=== PATIENT | female | born 1975 | race Caucasian/White ===

== ENCOUNTER 2017-09-01 01:42 | Emergency (ER) | payer MEDICARE, MEDICAID ==
[~2017-09-01] VITALS: Ht 162.6 cm; Wt 120.0 kg
[~2017-09-01 01:42] MED LIST: DIPH25CA83 PO; DOCU-28 PO; FAMO40TA73 PO; IBUP-1984 PO; LABE50DI PO; ONDA4TAB6 PO; ZIPR20CA2 PO; ZIPR60CA5 PO; ZOL50T PO
[2017-09-01] MEDS ORDERED: ondansetron 4mg rapidly disintigrating tab PO ONE (02:05)
[2017-09-01 02:46] LABS: BASOPHILS % (AUTO) 0.4 % (0-1); EOSINOPHILS # (AUTO) 0.2 X10'3 (0-0.9); EOSINOPHILS % (AUTO) 2.6 % (0-6); HEMATOCRIT 35.6 % (35.0-45.0); HEMOGLOBIN 11.9 g/dl (12.0-16.0); LYMPHOCYTES # (AUTO) 2.1 X10'3 (1.1-4.8); LYMPHOCYTES % (AUTO) 23.7 % (21-51); MEAN CORPUSCULAR HEMOGLOBIN 27.1 PG (27.0-31.0); MEAN CORPUSCULAR HGB CONC 33.5 % (33.0-36.5); MEAN PLATELET VOLUME 7.7 FL (7.4-10.4); MONOCYTES # (AUTO) 0.8 X10'3 (0-0.9); MONOCYTES % (AUTO) 8.8 % (2-12); NEUTROPHILS # (AUTO) 5.6 X10'3 (1.8-7.7); NEUTROPHILS % (AUTO) 64.5 % (42-75); PLATELET COUNT 245 X10'3 (140-440); RED BLOOD COUNT 4.39 X10'6 (4.20-5.60); RED CELL DISTRIBUTION WIDTH 14.8 % (11.5-14.5); WHITE BLOOD COUNT 8.7 X10'3 (4.5-11.0)
[2017-09-01 02:49] LABS: CLARITY,URINE Clear (Clear); COLOR,URINE Yellow (Yellow); GLUCOSE, URINE Negative (Neg); KETONES,URINE Negative (Neg); LEUKOCYTE ESTERASE ,URINE Negative (Neg); NITRITES, URINE Negative (Neg); OCCULT BLOOD,URINE Negative (Neg); PROTEIN,URINE Trace mg/dl (Neg)
[2017-09-01 02:50] LABS: UA COLLECTION TYPE CLN CATCH MIDSTREAM
[2017-09-01 02:59] LABS: BACTERIA,URINE 1+ /HPF (Neg); RBC,URINE NONE SEEN /HPF (0-2); SQUAMOUS EPITHELIAL CELL,UR MANY /LPF (FEW); WBC,URINE 0-4 /HPF (0-4)
[2017-09-01 03:00] LABS: MUCUS STRANDS MODERATE /LPF (Neg)
[2017-09-01 03:01] LABS: ALANINE AMINOTRANSFERASE 21 U/L (12-78); ALBUMIN 3.4 G/DL (3.4-5.0); ALBUMIN/GLOBULIN RATIO 0.9 (1.1-1.5); ALKALINE PHOSPHATASE 86 IU/L (46-116); ANION GAP 9 (8-16); ASPARTATE AMINO TRANSFERASE 15 U/L (10-37); BILIRUBIN,TOTAL 0.5 MG/DL (0.1-1.0); BLOOD UREA NITROGEN 15 MG/DL (7-18); BUN/CREATININE RATIO 20.8 (6.6-38.0); CALCIUM 8.1 MG/DL (8.5-10.1); CHLORIDE 104 MMOL/L (99-107); CREATININE 0.72 MG/DL (0.40-0.90); GLUCOSE 134 MG/DL (70-104); LIPASE 174 U/L (73-393); POTASSIUM 3.5 MMOL/L (3.5-5.1); SODIUM 140 MMOL/L (135-145); TOTAL CARBON DIOXIDE 27.4 MMOL/L (24-32); TOTAL PROTEIN 7.1 G/DL (6.4-8.2); eGFR 89 ML/MIN
[2017-09-01 03:42] LABS: URINE HCG NEGATIVE (NEG)
[2017-09-01] MEDS ORDERED: ONDA4TAB12 PO (03:51)
[2017-09-01 04:17] VITALS: BP 122/74
== END 2017-09-01 04:20 | disposition home or self-care (01) ==
LOC: ER 01:43
DX: R10.30 Lower abdominal pain, unspecified (principal); G89.29 Other chronic pain; I10 Essential (primary) hypertension; G47.00 Insomnia, unspecified; J45.909 Unspecified asthma, uncomplicated; Z98.890 Other specified postprocedural states; Z87.891 Personal history of nicotine dependence; Z88.6 Allergy status to analgesic agent; Z88.5 Allergy status to narcotic agent; Z79.899 Other long term (current) drug therapy
CPT/HCPCS: 36415; 80053; 81001; 81025; 83690; 85025; 99284

== ENCOUNTER 2017-11-05 05:00 | Emergency (ER) | payer MEDICARE, MEDICAID ==
[~2017-11-05] VITALS: Ht 162.6 cm; Wt 125.6 kg
[~2017-11-05 05:00] MED LIST changes: +ONDA4TAB12 PO
[2017-11-05] MEDS ORDERED: ondansetron 4mg rapidly disintigrating tab PO ONE (06:55)
[2017-11-05] MEDS ORDERED: meclizine 12.5mg tablet PO ONE (06:55)
[2017-11-05 07:12] LABS: CLARITY,URINE Clear (Clear); COLOR,URINE Yellow (Yellow); GLUCOSE, URINE Negative (Neg); KETONES,URINE Negative (Neg); LEUKOCYTE ESTERASE ,URINE Negative (Neg); NITRITES, URINE Negative (Neg); OCCULT BLOOD,URINE Negative (Neg); PH,URINE 6.5 (4.8-8.0); PROTEIN,URINE Trace mg/dl (Neg); UROBILINOGEN,URINE 0.2 E.U/dL (0.2-1.0)
[2017-11-05 07:13] LABS: UA COLLECTION TYPE CLN CATCH MIDSTREAM; URINE HCG NEGATIVE (NEG)
[2017-11-05] MEDS ORDERED: MECL-111 PO (07:23)
[2017-11-05 07:39] VITALS: BP 156/93
[2017-11-05 07:48] LABS: RBC,URINE NONE SEEN /HPF (0-2); WBC,URINE 0-4 /HPF (0-4)
[2017-11-05 07:49] LABS: BACTERIA,URINE FEW /HPF (Neg); MUCUS STRANDS FEW /LPF (Neg); SQUAMOUS EPITHELIAL CELL,UR FEW /LPF (FEW)
== END 2017-11-05 07:42 | disposition home or self-care (01) ==
LOC: ER 05:00
DX: R10.84 Generalized abdominal pain (principal); R42 Dizziness and giddiness; I10 Essential (primary) hypertension; J45.909 Unspecified asthma, uncomplicated; Z60.2 Problems related to living alone; Z79.899 Other long term (current) drug therapy
CPT/HCPCS: 81001; 81025; 82948; 99285; J8597

== ENCOUNTER 2017-12-31 09:54 | Emergency (ER) | payer MEDICARE, MEDICAID ==
[~2017-12-31] VITALS: Ht 162.6 cm; Wt 126.6 kg
[~2017-12-31 09:54] MED LIST changes: +MECL-111 PO
[2017-12-31 10:23] LABS: URINE HCG NEGATIVE (NEG)
[2017-12-31 10:28] LABS: CLARITY,URINE SLIGHTLY CLOUDY (Clear); COLOR,URINE YELLOW (Yellow); GLUCOSE, URINE NEGATIVE (Neg); KETONES,URINE NEGATIVE (Neg); LEUKOCYTE ESTERASE ,URINE NEGATIVE (Neg); NITRITES, URINE POSITIVE (Neg); OCCULT BLOOD,URINE LARGE (Neg); PH,URINE 6.5 (4.8-8.0); PROTEIN,URINE >=300 mg/dl (Neg); UROBILINOGEN,URINE 0.2 E.U/dL (0.2-1.0)
[2017-12-31 10:32] LABS: UA COLLECTION TYPE CLN CATCH MIDSTREAM
[2017-12-31 10:36] LABS: RBC,URINE TNTC /HPF (0-2); WBC,URINE 50-100 /HPF (0-4)
[2017-12-31 10:37] LABS: BACTERIA,URINE 2+ /HPF (Neg); MUCUS STRANDS FEW /LPF (Neg)
[2017-12-31 10:38] LABS: SQUAMOUS EPITHELIAL CELL,UR MODERATE /LPF (FEW); WBC CLUMPS,URINE MODERATE /HPF (NEGATIVE)
[2017-12-31] MEDS ORDERED: SULF1TAB49 PO (10:50)
[2017-12-31] MEDS ORDERED: METO100T14 PO (11:07)
[2017-12-31 11:14] VITALS: BP 199/116
== END 2017-12-31 11:16 | disposition home or self-care (01) ==
LOC: ER 09:55
DX: M46.1 Sacroiliitis, not elsewhere classified (principal); N39.0 Urinary tract infection, site not specified; I10 Essential (primary) hypertension; J45.909 Unspecified asthma, uncomplicated; Z60.2 Problems related to living alone; Z88.5 Allergy status to narcotic agent; Z88.8 Allergy status to other drugs, medicaments and biological substances; Z79.899 Other long term (current) drug therapy
CPT/HCPCS: 81001; 81025; 87077; 87088; 87186; 99284

== ENCOUNTER 2018-02-03 10:44 | Emergency (ER) | payer MEDICARE, MEDICAID ==
[~2018-02-03] VITALS: Ht 162.6 cm; Wt 123.0 kg
[~2018-02-03 10:44] MED LIST changes: +METO100T14 PO
[2018-02-03 12:13] LABS: URINE HCG NEGATIVE (NEG)
[2018-02-03 12:17] LABS: CLARITY,URINE CLOUDY (Clear); COLOR,URINE AMBER (Yellow); GLUCOSE, URINE NEGATIVE (Neg); KETONES,URINE NEGATIVE (Neg); LEUKOCYTE ESTERASE ,URINE MODERATE (Neg); NITRITES, URINE POSITIVE (Neg); OCCULT BLOOD,URINE LARGE (Neg); PROTEIN,URINE >=300 mg/dl (Neg); UROBILINOGEN,URINE 0.2 E.U/dL (0.2-1.0)
[2018-02-03 12:27] LABS: UA COLLECTION TYPE CLN CATCH MIDSTREAM
[2018-02-03 12:28] LABS: BACTERIA,URINE 4+ /HPF (Neg); MUCUS STRANDS FEW /LPF (Neg); RBC,URINE TNTC /HPF (0-2); SQUAMOUS EPITHELIAL CELL,UR MODERATE /LPF (FEW); WBC,URINE TNTC /HPF (0-4)
[2018-02-03] MEDS ORDERED: ketorolac trometh inj. 60 MG/2 ML VIAL IM STA (12:29)
[2018-02-03] MEDS ORDERED: IBUP-1984 PO (12:31)
[2018-02-03] MEDS ORDERED: SULF1TAB48 PO (12:49)
[2018-02-03 12:58] VITALS: BP 185/95
== END 2018-02-03 13:08 | disposition home or self-care (01) ==
LOC: ER 10:44
DX: M25.552 Pain in left hip (principal); R11.10 Vomiting, unspecified; I10 Essential (primary) hypertension; J45.909 Unspecified asthma, uncomplicated; Z60.2 Problems related to living alone; Z98.890 Other specified postprocedural states; Z88.5 Allergy status to narcotic agent; Z79.899 Other long term (current) drug therapy
CPT/HCPCS: 81001; 81025; 87077; 87088; 87186; 96372; 99284; J1885

== ENCOUNTER 2018-05-11 20:49 | Emergency (ER) | payer MEDICARE, MEDICAID ==
[~2018-05-11] VITALS: Ht 162.6 cm; Wt 120.0 kg
[2018-05-11 21:00] VITALS: BP 198/117
[2018-05-11] MEDS ORDERED: ondansetron/PF 4mg/2ml inj IV ONE (21:35)
[2018-05-11] MEDS ORDERED: normal saline 1000ml 1,000 ML IV ONE (21:35)
[2018-05-11 21:56] LABS: BASOPHILS # (AUTO) 0.1 X10'3 (0-0.2); BASOPHILS % (AUTO) 0.8 % (0-1); EOSINOPHILS # (AUTO) 0.2 X10'3 (0-0.9); EOSINOPHILS % (AUTO) 1.9 % (0-6); HEMATOCRIT 37.9 % (35.0-45.0); HEMOGLOBIN 12.9 g/dl (12.0-16.0); LYMPHOCYTES # (AUTO) 2.1 X10'3 (1.1-4.8); LYMPHOCYTES % (AUTO) 25.3 % (21-51); MEAN CORPUSCULAR HEMOGLOBIN 28.3 PG (27.0-31.0); MEAN CORPUSCULAR HGB CONC 33.9 % (33.0-36.5); MEAN CORPUSCULAR VOLUME 83.3 FL (78-98); MEAN PLATELET VOLUME 8.3 FL (7.4-10.4); MONOCYTES # (AUTO) 0.7 X10'3 (0-0.9); MONOCYTES % (AUTO) 7.9 % (2-12); NEUTROPHILS # (AUTO) 5.4 X10'3 (1.8-7.7); NEUTROPHILS % (AUTO) 64.1 % (42-75); PLATELET COUNT 232 X10'3 (140-440); RED BLOOD COUNT 4.55 X10'6 (4.20-5.60); RED CELL DISTRIBUTION WIDTH 15.4 % (11.5-14.5); WHITE BLOOD COUNT 8.5 X10'3 (4.5-11.0)
[2018-05-11 22:00] LABS: URINE HCG NEGATIVE (NEG)
[2018-05-11 22:06] LABS: CLARITY,URINE CLEAR (Clear); COLOR,URINE YELLOW (Yellow); GLUCOSE, URINE NEGATIVE (Neg); KETONES,URINE NEGATIVE (Neg); LEUKOCYTE ESTERASE ,URINE NEGATIVE (Neg); NITRITES, URINE NEGATIVE (Neg); OCCULT BLOOD,URINE NEGATIVE (Neg); PROTEIN,URINE NEGATIVE (Neg); UROBILINOGEN,URINE 0.2 E.U/dL (0.2-1.0)
[2018-05-11 22:07] LABS: UA COLLECTION TYPE CLN CATCH MIDSTREAM
[2018-05-11 22:16] LABS: ALANINE AMINOTRANSFERASE 21 U/L (12-78); ALBUMIN 3.5 G/DL (3.4-5.0); ALKALINE PHOSPHATASE 81 IU/L (46-116); ANION GAP 8 (8-16); ASPARTATE AMINO TRANSFERASE 17 U/L (10-37); BILIRUBIN,TOTAL 0.5 MG/DL (0.1-1.0); BLOOD UREA NITROGEN 10 MG/DL (7-18); BUN/CREATININE RATIO 13.5 (6.6-38.0); CHLORIDE 105 MMOL/L (99-107); CREATININE 0.74 MG/DL (0.40-0.90); GLUCOSE 137 MG/DL (70-104); POTASSIUM 4.1 MMOL/L (3.5-5.1); SODIUM 141 MMOL/L (135-145); eGFR 86 ML/MIN
== END 2018-05-11 23:27 | disposition home or self-care (01) ==
LOC: ER 20:50
DX: D25.9 Leiomyoma of uterus, unspecified (principal); N83.202 Unspecified ovarian cyst, left side; K76.0 Fatty (change of) liver, not elsewhere classified; I10 Essential (primary) hypertension; J45.909 Unspecified asthma, uncomplicated; Z98.890 Other specified postprocedural states; Z60.2 Problems related to living alone; Z88.5 Allergy status to narcotic agent; Z79.899 Other long term (current) drug therapy
CPT/HCPCS: 36415; 74176; 80053; 81003; 81025; 85025; 96374; 99285; J2405; J7030

== ENCOUNTER 2019-03-08 14:20 | Emergency (ER) | payer MEDICARE, MEDICAID ==
[~2019-03-08] VITALS: Ht 162.6 cm; Wt 120.5 kg
[2019-03-08] MEDS ORDERED: IBUP-1984 PO (16:22)
[2019-03-08 16:31] LABS: URINE HCG NEGATIVE (NEG)
[2019-03-08 16:33] LABS: CLARITY,URINE SLIGHTLY CLOUDY (Clear); COLOR,URINE YELLOW (Yellow); GLUCOSE, URINE NEGATIVE (Neg); KETONES,URINE TRACE mg/dl (Neg); LEUKOCYTE ESTERASE ,URINE NEGATIVE (Neg); NITRITES, URINE NEGATIVE (Neg); OCCULT BLOOD,URINE SMALL (Neg); PH,URINE 5.5 (4.8-8.0); PROTEIN,URINE TRACE mg/dl (Neg); UROBILINOGEN,URINE 0.2 E.U/dL (0.2-1.0)
[2019-03-08 16:38] LABS: UA COLLECTION TYPE VOIDED
[2019-03-08 16:43] LABS: BACTERIA,URINE FEW /HPF (Neg); MUCUS STRANDS MODERATE /LPF (Neg); RBC,URINE 0-2 /HPF (0-2); SQUAMOUS EPITHELIAL CELL,UR MANY /LPF (FEW); WBC,URINE 0-4 /HPF (0-4)
[2019-03-08 17:29] VITALS: BP 145/90
== END 2019-03-08 17:30 | disposition home or self-care (01) ==
LOC: ER 14:21
DX: G89.29 Other chronic pain (principal); R19.03 Right lower quadrant abdominal swelling, mass and lump; I10 Essential (primary) hypertension; J45.909 Unspecified asthma, uncomplicated; F41.9 Anxiety disorder, unspecified; F32.9 Major depressive disorder, single episode, unspecified; Z98.890 Other specified postprocedural states; Z88.5 Allergy status to narcotic agent; Z79.899 Other long term (current) drug therapy
CPT/HCPCS: 81001; 81025; 99283

== ENCOUNTER 2019-07-28 16:56 | Emergency (ER) | payer MEDICARE, MEDICAID ==
[~2019-07-28] VITALS: Ht 160 cm; Wt 120.0 kg
[~2019-07-28 16:56] MED LIST changes: +SERT-153 PO; -ZOL50T PO
[2019-07-28 17:11] VITALS: BP 187/104
[2019-07-28] MEDS ORDERED: ondansetron 4mg rapidly disintigrating tab PO ONE (19:50)
[2019-07-28 20:05] LABS: URINE HCG NEGATIVE (NEG)
[2019-07-28 20:14] LABS: CLARITY,URINE CLEAR (Clear); COLOR,URINE YELLOW (Yellow); GLUCOSE, URINE NEGATIVE (Neg); KETONES,URINE NEGATIVE (Neg); LEUKOCYTE ESTERASE ,URINE NEGATIVE (Neg); NITRITES, URINE NEGATIVE (Neg); OCCULT BLOOD,URINE NEGATIVE (Neg); PROTEIN,URINE NEGATIVE (Neg); UROBILINOGEN,URINE 0.2 E.U/dL (0.2-1.0)
[2019-07-28 20:21] LABS: UA COLLECTION TYPE CLN CATCH MIDSTREAM
[2019-07-28] MEDS ORDERED: ONDA4TAB6 PO (20:46)
== END 2019-07-28 20:53 | disposition home or self-care (01) ==
LOC: ER 16:56
DX: R11.0 Nausea (principal); R42 Dizziness and giddiness; I10 Essential (primary) hypertension; J45.909 Unspecified asthma, uncomplicated; F41.9 Anxiety disorder, unspecified; F32.9 Major depressive disorder, single episode, unspecified; Z98.890 Other specified postprocedural states; Z60.2 Problems related to living alone; Z88.5 Allergy status to narcotic agent; Z79.899 Other long term (current) drug therapy
CPT/HCPCS: 81003; 81025; 93005; 99284

== ENCOUNTER 2020-05-03 23:01 | Emergency (ER) | payer MEDICARE, MEDICAID ==
[~2020-05-03] VITALS: Ht 162.6 cm; Wt 119.0 kg
[~2020-05-03 23:01] MED LIST changes: -MECL-111 PO; +MECL-159 PO
[2020-05-03 23:03] VITALS: BP 173/83
[2020-05-04] MEDS ORDERED: BENZ-16 PO (00:03)
[2020-05-04] MEDS ORDERED: ALBU8.5H8 INH (00:03)
== END 2020-05-04 00:18 | disposition home or self-care (01) ==
LOC: ER 23:02
DX: R05 Cough (principal); I10 Essential (primary) hypertension; J45.909 Unspecified asthma, uncomplicated; Z20.828 Contact with and (suspected) exposure to other viral communicable diseases; Z88.5 Allergy status to narcotic agent; Z79.899 Other long term (current) drug therapy; F41.9 Anxiety disorder, unspecified; F32.9 Major depressive disorder, single episode, unspecified; Z98.890 Other specified postprocedural states; Z60.2 Problems related to living alone
CPT/HCPCS: 36415; 71045; 87635; 99283; 99284

== ENCOUNTER 2021-05-10 23:34 | Emergency (ER) | payer MEDICARE, MEDICAID ==
[~2021-05-10] VITALS: Ht 162.6 cm; Wt 118.5 kg
[~2021-05-10 23:34] MED LIST changes: +ALBU8.5H17 INH
[2021-05-11 01:13] LABS: UA COLLECTION TYPE CLN CATCH MIDSTREAM
[2021-05-11 01:14] LABS: CLARITY,URINE SLIGHTLY CLOUDY (Clear); COLOR,URINE YELLOW (Yellow); GLUCOSE, URINE NEGATIVE (Neg); KETONES,URINE NEGATIVE (Neg); NITRITES, URINE NEGATIVE (Neg); OCCULT BLOOD,URINE MODERATE (Neg); PROTEIN,URINE 30 mg/dl (Neg)
[2021-05-11 01:15] LABS: LEUKOCYTE ESTERASE ,URINE MODERATE (Neg); UROBILINOGEN,URINE 0.2 E.U/dL (0.2-1.0)
[2021-05-11 01:20] LABS: BACTERIA,URINE 2+ /HPF (Neg); MUCUS STRANDS FEW /LPF (Neg); RBC,URINE NONE SEEN /HPF (0-2); SQUAMOUS EPITHELIAL CELL,UR MODERATE /LPF (FEW)
[2021-05-11 01:47] LABS: BASOPHILS # (AUTO) 0.1 X10'3 (0-0.2); BASOPHILS % (AUTO) 0.6 % (0-1); EOSINOPHILS # (AUTO) 0.1 X10'3 (0-0.9); EOSINOPHILS % (AUTO) 0.9 % (0-6); HEMATOCRIT 39.8 % (35.0-45.0); HEMOGLOBIN 13.5 g/dl (12.0-16.0); LYMPHOCYTES # (AUTO) 1.6 X10'3 (1.1-4.8); LYMPHOCYTES % (AUTO) 17.8 % (21-51); MEAN CORPUSCULAR HEMOGLOBIN 28.1 PG (27.0-31.0); MEAN CORPUSCULAR VOLUME 82.6 FL (78-98); MEAN PLATELET VOLUME 7.7 FL (7.4-10.4); MONOCYTES # (AUTO) 0.7 X10'3 (0-0.9); MONOCYTES % (AUTO) 8.3 % (2-12); NEUTROPHILS # (AUTO) 6.5 X10'3 (1.8-7.7); NEUTROPHILS % (AUTO) 72.4 % (42-75); PLATELET COUNT 224 X10'3 (140-440); RED BLOOD COUNT 4.82 X10'6 (4.20-5.60)
[2021-05-11 01:59] LABS: ALBUMIN 3.6 G/DL (3.4-5.0); ANION GAP 7 (8-16); BLOOD UREA NITROGEN 9 MG/DL (7-18); BUN/CREATININE RATIO 12.5 (6.6-38.0); CALCIUM 9.4 MG/DL (8.5-10.1); CHLORIDE 105 MMOL/L (99-107); CREATININE 0.72 MG/DL (0.40-0.90); GLUCOSE 139 MG/DL (70-104); POTASSIUM 4.1 MMOL/L (3.5-5.1); SODIUM 142 MMOL/L (135-145); TOTAL CARBON DIOXIDE 29.8 MMOL/L (24-32); eGFR 87 ML/MIN
[2021-05-11] MEDS ORDERED: NITR100C6 PO (02:01)
[2021-05-11 02:13] VITALS: BP 148/88
== END 2021-05-11 | disposition home or self-care (01) ==
LOC: ER 05-11 02:20
DX: N39.0 Urinary tract infection, site not specified (principal); I10 Essential (primary) hypertension; J45.909 Unspecified asthma, uncomplicated; F41.9 Anxiety disorder, unspecified; F32.9 Major depressive disorder, single episode, unspecified; Z88.5 Allergy status to narcotic agent; Z88.8 Allergy status to other drugs, medicaments and biological substances
CPT/HCPCS: 36415; 80048; 81001; 85025; 87077; 87088; 87186; 99283

== ENCOUNTER 2022-11-11 17:10 | Emergency (ER) | payer MEDICARE, MEDICAID ==
[~2022-11-11] VITALS: Ht 162.6 cm; Wt 122.7 kg
[~2022-11-11 17:10] MED LIST changes: +NITR100C6 PO
[2022-11-11 17:51] VITALS: BP 194/121
[2022-11-11] MEDS ORDERED: AMOX500C2 PO (18:00)
[2022-11-11] MEDS ORDERED: METF-516 PO (18:00)
[2022-11-11] MEDS ORDERED: LISI40TA13 PO (18:00)
== END 2022-11-11 18:47 | disposition home or self-care (01) ==
LOC: ER 17:12
DX: K08.89 Other specified disorders of teeth and supporting structures (principal); Z76.0 Encounter for issue of repeat prescription
CPT/HCPCS: 99281; 99283

== ENCOUNTER 2023-07-22 22:59 | Emergency (ER) | payer MEDICARE, MEDICAID ==
[~2023-07-22] VITALS: Ht 162.6 cm; Wt 126.0 kg
[~2023-07-22 22:59] MED LIST changes: -MECL-159 PO; +MECL-302 PO; +METF-516 PO
[2023-07-22] MEDS ORDERED: acetaminophen 325mg tablet PO ONE (23:05)
[2023-07-23] MEDS ORDERED: ibuprofen tablet 400 MG TABLET PO ONE (01:30)
[2023-07-23] MEDS ORDERED: lisinopril 10 MG tablet PO ONE (01:30)
[2023-07-23 02:16] LABS: ALANINE AMINOTRANSFERASE 37 U/L (12-78); ALBUMIN 3.8 G/DL (3.4-5.0); ALKALINE PHOSPHATASE 96 IU/L (46-116); ANION GAP 7 (8-16); ASPARTATE AMINO TRANSFERASE 27 U/L (10-37); BILIRUBIN,TOTAL 0.9 MG/DL (0.1-1.0); BLOOD UREA NITROGEN 7 MG/DL (7-18); BUN/CREATININE RATIO 9.6 (10.0-20.0); CALCIUM 9.3 MG/DL (8.5-10.1); CHLORIDE 100 MMOL/L (99-107); CREATININE 0.73 MG/DL (0.40-0.90); GLUCOSE 132 MG/DL (70-104); POTASSIUM 3.5 MMOL/L (3.5-5.1); SODIUM 136 MMOL/L (135-145); TOTAL CARBON DIOXIDE 29.3 MMOL/L (24-32); TOTAL PROTEIN 7.6 G/DL (6.4-8.2); eCRCL 81 ML/MIN; eGFR 85 ML/MIN
[2023-07-23 02:19] LABS: MAGNESIUM 1.9 MG/DL (1.5-2.4)
[2023-07-23 02:21] LABS: BASOPHILS % (AUTO) 0.4 % (0-1); EOSINOPHILS # (AUTO) 0.1 X10'3 (0-0.9); EOSINOPHILS % (AUTO) 0.9 % (0-6); HEMATOCRIT 37.6 % (35.0-45.0); HEMOGLOBIN 12.8 g/dl (12.0-16.0); LYMPHOCYTES # (AUTO) 0.9 X10'3 (1.1-4.8); LYMPHOCYTES % (AUTO) 12.5 % (21-51); MEAN CORPUSCULAR HEMOGLOBIN 28.5 PG (27.0-31.0); MEAN CORPUSCULAR VOLUME 83.8 FL (78-98); MEAN PLATELET VOLUME 8.5 FL (7.4-10.4); MONOCYTES # (AUTO) 0.9 X10'3 (0-0.9); MONOCYTES % (AUTO) 12.1 % (2-12); NEUTROPHILS # (AUTO) 5.6 X10'3 (1.8-7.7); NEUTROPHILS % (AUTO) 74.1 % (42-75); PLATELET COUNT 134 X10'3 (140-440); RED BLOOD COUNT 4.49 X10'6 (4.20-5.60); RED CELL DISTRIBUTION WIDTH 14.5 % (11.5-14.5); WHITE BLOOD COUNT 7.6 X10'3 (4.5-11.0)
[2023-07-23 04:19] VITALS: BP 130/75
[2023-07-23] MEDS ORDERED: LISI40TA13 PO (04:23)
[2023-07-23] MEDS ORDERED: NIRM1TAB5 PO (04:23)
[2023-07-23 04:28] VITALS: PULSE 72; RESP 18; TEMP 98.6; O2SAT 95
== END 2023-07-23 04:30 | disposition home or self-care (01) ==
LOC: ER 22:59
DX: U07.1 COVID-19 (principal); I10 Essential (primary) hypertension; J45.909 Unspecified asthma, uncomplicated; E11.9 Type 2 diabetes mellitus without complications; F31.9 Bipolar disorder, unspecified; Z98.890 Other specified postprocedural states; Z88.5 Allergy status to narcotic agent; Z79.899 Other long term (current) drug therapy
CPT/HCPCS: 36415; 71045; 80053; 83605; 83735; 84484; 85025; 87040; 87502; 87503; 87811; 93005; 99285

== ENCOUNTER 2025-04-26 19:35 | Emergency (ER) | payer MEDICARE, MEDICAID ==
[~2025-04-26 19:35] MED LIST changes: +NIRM1TAB5 PO; +ONDA-243 PO; -ONDA4TAB12 PO
[2025-04-26 19:43] VITALS: TEMP 100.1
--- NOTE | 2025-04-26 19:55 | ELECTROCARDIOGRAPH REPORT ---
[facility] Test Date: 2025-04-26 Test Time: 19:52:30 Pat Name: GRADY MICHEL Department: EMERGENCY ROOM Room: Gender: F Fitness Trainer: HUSSAIN : 1975 Requested By: VIRGILIO ROTHMAN Order Number: [id number] Reading MD: Measurements Intervals [place] Rate: 114 P: 51 MO: 186 QRS: 4 QRSD: 85 T: 33 QT: 319 QTc: 440 Interpretive Statements Sinus tachycardia Low voltage, precordial leads Consider anterior infarct Please click the below link to view image of tracing.
[2025-04-26 20:11] LABS: MEAN PLATELET VOLUME 8.3 FL (7.4-10.4); RED CELL DISTRIBUTION WIDTH 14.4 % (11.5-14.5)
--- NOTE | 2025-04-26 20:27 | Physician Documentation ---
History of Present Illness ~ Chief Complaint: Shortness of Breath Stated Complaint: COLD/POSSIBLE COVID Time Seen by MD: 20:07 Primary Medical Doctor: [facility] HPI Fever, nonproductive cough, and chest pain today. +Roommate with positive COVID test. Denies LOC, difficulty breathing, N/V/D. Medication Reconciliation Allergies: Coded Allergies: hydrocodone bit (Verified Allergy, Unknown, 11/11/22) Scheduled Diphenhydramine Hcl (Benadryl), 1 CAP PO HS Docusate Sodium (Colace), 1 CAP PO Q12H Famotidine (Pepcid), 1 TAB PO DAILY Ibuprofen* (Motrin*), 800 MG PO TID Labetalol Hcl (Labetalol Hcl), 50 MG PO BID, (Reported) Meclizine HCl (Meclizine HCl), 1 TAB PO Q8H Metformin HCl (Metformin HCl ER), 1 TAB PO DAILY Metoprolol Tartrate (Metoprolol Tartrate), 1 TAB PO Q12H Nirmatrelvir/Ritonavir (Paxlovid 150-100 mg Pack (Eua)), 3 TAB PO Q12H Nitrofurantoin Monohyd/M-Cryst (Macrobid 100 mg Capsule), 1 CAP PO Q12H Ondansetron Hcl (Zofran), 1 TAB PO Q6H Sertraline HCl (Sertraline HCl), 200 MG PO DAILY, (Reported) Ziprasidone Hcl (Geodon), 40 MG PO BID, (Reported) Ziprasidone Hcl (Geodon), 60 MG PO BID Scheduled PRN Albuterol Sulfate (Proair Hfa), 2 PUFFS INH Q4HPRN PRN for wheezing ONDANSETRON ODT 4mg tablet (Ondansetron Odt), 1 TABLET PO Q6H PRN for nausea/vomiting Ondansetron Hcl (Zofran), 1 TABLET PO Q4H PRN for nausea/vomiting Miscellaneous Medications Ziprasidone Hcl (Geodon), 20 MG PO, (Reported) Past Medical History Past Medical History: Hypertension, Asthma, *GI/HEPATOBILIARY*, Diabetes, *PSYCH*, Anxiety, Depression Past Surgical History: , hysterectomy Other Past Surgical History: D&C May 2016 Alcohol Use: Sober Drug Use: none Lives with: Alone Lives In: Home Occupation: disabled Review of Systems All Other Systems at this time: Reviewed and Negative Physical Exam Vital Signs: RN Vital Signs have been reviewed: Yes, Temperature: 100.1, Source: Oral, Heart Rate: 124, Respiratory Rate: 22, BP: 102/76, Pulse Oximetry: 97 Oxygen Flow Rate: 0 Physical Exam HEENT: PERRL, moist oral mucosa, EOMI Pulmonary: No respiratory distress MSK: no deformity Skin: w/d/i, no rash Neuro: alert, nonfocal Psych: normal affect Progress Results/Orders Results/Orders Orders - VIRGILIO ROTHMAN MD Chest,Single View (04/26/25 19:51) Monitor (04/26/25 19:51) Saline Lock (04/26/25 19:51) Oxygen (04/26/25 19:51) BMP (04/26/25 19:51) PBNP (04/26/25 19:51) Hs Troponin I W Calculations (04/26/25 19:51) Hs Troponin I W Calculations (04/26/25 21:51) Hs Troponin I W Calculations (04/26/25 22:51) Completed Orders - VIRGILIO ROTHMAN MD Chest,Single View (04/26/25 19:51) Cbc/Diff (04/26/25 19:51) Electrocardiogram (04/26/25 19:51) Vital Signs 04/26/25 19:43 Temp 100.1 Pulse 124 Resp 22 B/P (MAP) 102/76 Pulse Ox 97 O2 Flow Rate 0 Laboratory Tests Test 04/26/25 19:50 04/26/25 20:05 SARS-CoV-2 Antigen (Rapid) Positive *A White Blood Count 6.7 Red Blood Count 4.43 Hemoglobin 12.8 Hematocrit 37.3 Mean Corpuscular Volume 84.2 Mean Corpuscular Hemoglobin 28.8 Mean Corpuscular Hemoglobin Concent 34.3 Red Cell Distribution Width 14.4 Platelet Count 167 Mean Platelet Volume 8.3 Neutrophils (%) (Auto) 72.7 Lymphocytes (%) (Auto) 14.7 L Monocytes (%) (Auto) 11.0 Eosinophils (%) (Auto) 1.1 Basophils (%) (Auto) 0.5 Neutrophils # (Auto) 4.9 Lymphocytes # (Auto) 1.0 L Monocytes # (Auto) 0.7 Eosinophils # (Auto) 0.1 Basophils # (Auto) 0.0 CBC Comment Chemistry Comments Medical Decision Making Findings 50 year old female with likely COVID, confirmed on testing. Workup including CXR intepreted by me demonstrating normal contours, no evidence of PNA or PTX, with no hypoxia and no good reason to keep patient in house. Discharge with return precautions. Differential Dx:Considerations: Include: anxiety, asthma, bronchitis, COPD, pneumonia, pulmonary embolism, respiratory failure, upper resp. infection Departure Disposition: HOME / SELF CARE / HOMELESS Impression: Primary Impression: COVID-19 Discharge Instructions: Viral Syndrome Referrals: NO PRIMARY CARE PROVIDER (PCP) Education Educated: Patient Educated regarding: diagnosis, treatment, prognosis, need for follow up Signature Scribe Signature: . Attestation: . VIRGILIO ROTHMAN MD Apr 26, 2025 20:27
[2025-04-26 20:33] LABS: CREATININE 0.88 MG/DL (0.40-0.90); PRO BRAIN NATRIURETIC PEPTIDE 76 PG/ML (0-125); TOTAL CARBON DIOXIDE 30.4 MMOL/L (24-32); eGFR 68 ML/MIN
--- NOTE | 2025-04-26 20:36 | RADIOLOGY REPORT ---
EXAM: DI CHEST,SINGLE VIEW CLINICAL HISTORY: CP TECHNIQUE: Single AP view of the chest WID: COMPARISON: DI CHEST,SINGLE VIEW on DOS: 07/23/23 FINDINGS: Lines and tubes: None Chest: The heart size and pulmonary vasculature is within normal limits. No pleural effusion, pneumothorax, or consolidation. The osseous structures are grossly intact. IMPRESSION: 1. No acute cardiopulmonary abnormality.
[2025-04-26 20:43] VITALS: BP 133/76; PULSE 110; RESP 18; O2SAT 99
== END 2025-04-26 20:45 | disposition home or self-care (01) ==
LOC: ER 19:36
DX: U07.1 COVID-19 (principal); R06.02 Shortness of breath; R07.9 Chest pain, unspecified; E11.9 Type 2 diabetes mellitus without complications; I10 Essential (primary) hypertension; J45.909 Unspecified asthma, uncomplicated; F10.90 Alcohol use, unspecified, uncomplicated; Z88.8 Allergy status to other drugs, medicaments and biological substances; Z90.710 Acquired absence of both cervix and uterus; Y90.9 Presence of alcohol in blood, level not specified
CPT/HCPCS: 36415; 71045; 80048; 83880; 84484; 85025; 87811; 93005; 99285

== ENCOUNTER 2025-07-05 20:16 | Emergency (ER) | payer MEDICARE, MEDICAID ==
[~2025-07-05] VITALS: Ht 162.6 cm; Wt 114.0 kg
--- NOTE | 2025-07-05 21:27 | Physician Documentation ---
HPI ~ General Chief Complaint: Jaw Pain Stated Complaint: JAW PAIN Time Seen by MD: 21:27 Primary Medical Doctor: [facility] History of Present Illness HPI Comment 50-year-old female presenting with dental pain She tells me that for the past day or so she has been having pain in her right upper jaw. She states it is around 1 of her teeth, and radiates into her cheek area. It is dull and achy. No specific injury to the teeth. No fevers or chills. No other related symptoms Medication Reconciliation Allergies: Coded Allergies: hydrocodone bit (Verified Allergy, Unknown, 11/11/22) Scheduled Amox Tr/Potassium Clavulanate 875/125 MG (Augmentin 875/125 MG), 1 TAB PO Q12H Diphenhydramine Hcl (Benadryl), 1 CAP PO HS Docusate Sodium (Colace), 1 CAP PO Q12H Famotidine (Pepcid), 1 TAB PO DAILY Ibuprofen* (Motrin*), 800 MG PO TID Labetalol Hcl (Labetalol Hcl), 50 MG PO BID, (Reported) Meclizine HCl (Meclizine HCl), 1 TAB PO Q8H Metformin HCl (Metformin HCl ER), 1 TAB PO DAILY Metoprolol Tartrate (Metoprolol Tartrate), 1 TAB PO Q12H Nirmatrelvir/Ritonavir (Paxlovid 150-100 mg Pack (Eua)), 3 TAB PO Q12H Nitrofurantoin Monohyd/M-Cryst (Macrobid 100 mg Capsule), 1 CAP PO Q12H Ondansetron Hcl (Zofran), 1 TAB PO Q6H Sertraline HCl (Sertraline HCl), 200 MG PO DAILY, (Reported) Ziprasidone Hcl (Geodon), 40 MG PO BID, (Reported) Ziprasidone Hcl (Geodon), 60 MG PO BID Scheduled PRN Albuterol Sulfate (Proair Hfa), 2 PUFFS INH Q4HPRN PRN for wheezing ONDANSETRON ODT 4mg tablet (Ondansetron Odt), 1 TABLET PO Q6H PRN for nausea/vomiting Ondansetron Hcl (Zofran), 1 TABLET PO Q4H PRN for nausea/vomiting Miscellaneous Medications Ziprasidone Hcl (Geodon), 20 MG PO, (Reported) Past Medical History Past Medical History: Hypertension, Asthma, *GI/HEPATOBILIARY*, Diabetes, *PSYCH*, Anxiety, Depression Past Surgical History: , hysterectomy Other Past Surgical History: D&C May 2016 Alcohol Use: Sober Drug Use: none Lives with: Alone Lives In: Home Occupation: disabled Review of Systems Constitutional: Denies: fever ENT: Reports: mouth pain Physical Exam Vital Signs: Temperature: 97.5, Source: Temporal, Heart Rate: 106, Respiratory Rate: 18, BP: 128/85, Pulse Oximetry: 96, Weight: 114.000 Oxygen Flow Rate: 0 Physical Exam General: This is a pleasant and very talkative middle-aged woman HEENT: Atraumatic, oropharynx is moist. Generally poor dentition with several missing teeth. On the right upper jaw there is a tooth with significant caries, with tenderness on palpation around the gumline. No periapical abscess. She does have tenderness on palpation of the cheek externally but no significant facial swelling Heart: Mild tachycardic, appears regular Lungs: normal work of breathing, normal oxygen saturation on room air Neuro: Alert and oriented Psychiatric: Calm and cooperative with exam Progress Results/Orders Results/Orders Orders - MAGALY ODONNELL MD Amox Tr/Potassium Clavulanate (Augmentin (07/05/25 21:40) Vital Signs 07/05/25 20:18 Temp 97.5 Pulse 106 Resp 18 B/P (MAP) 128/85 Pulse Ox 96 O2 Flow Rate 0 Medical Decision Making Additional information obtaine: N/A Findings na Differential Dx:Considerations: Include: Alveolar osteitis, Facial Cellulitis, Periapical abscess, Tooth Fracture Additional Comment The patient presents with dental pain. Her history and exam are consistent with an early dental infection. No evidence of abscess or other more dangerous infection. She will be treated with Augmentin, given home care instructions including anti-inflammatories, and follow up with a dentist. Departure Time of Disposition: 21:37 Disposition: HOME / SELF CARE / HOMELESS Impression: Primary Impression: Dental infection Referrals: NO PRIMARY CARE PROVIDER (PCP) Prescriptions Amox Tr/Potassium Clavulanate 875/125 MG (Augmentin 875/125 MG) 875 Mg-125 Mg Tablet 1 TAB PO Q12H for 7 Days, #14 TAB Prov: MAGALY ODONNELL MD 07/05/25 Education Educated: Patient Educated regarding: diagnosis, treatment, need for follow up Signature Scribe Signature: na Attestation: MAGALY Nichols MD Jul 05, 2025 21:27
[2025-07-05] MEDS ORDERED: AMOX-580 PO (21:38)
[2025-07-05] MEDS: amox tr/potassium clavulanate 875/125mg TAB PO ONE (21:45)
[2025-07-05 22:01] VITALS: BP 126/82; PULSE 99; RESP 20; TEMP 98.6; O2SAT 99
== END 2025-07-05 22:02 | disposition home or self-care (01) ==
LOC: ER 20:17
DX: K04.7 Periapical abscess without sinus (principal); F41.9 Anxiety disorder, unspecified; F32.A Depression, unspecified; J45.909 Unspecified asthma, uncomplicated; I10 Essential (primary) hypertension; E11.9 Type 2 diabetes mellitus without complications; Z90.710 Acquired absence of both cervix and uterus; Z88.5 Allergy status to narcotic agent; Z79.899 Other long term (current) drug therapy; Z98.890 Other specified postprocedural states
CPT/HCPCS: 99283